=== PATIENT | female | born 1955 | race Asian ===

== ENCOUNTER 2017-12-19 16:48 | Emergency (ER) | payer MEDICAID ==
[~2017-12-19] VITALS: Ht 160 cm; Wt 71.8 kg
[2017-12-19 16:55] VITALS: BP 137/73
== END 2017-12-19 19:00 | disposition home or self-care (01) ==
LOC: EMS 16:51
DX: J40 Bronchitis, not specified as acute or chronic (principal)
CPT/HCPCS: 71046; 99284

== ENCOUNTER 2018-01-07 13:44 | Emergency (ER) | payer MEDICAID ==
[~2018-01-07] VITALS: Ht 167.6 cm; Wt 65.9 kg
[2018-01-07 14:16] VITALS: BP 164/82
== END 2018-01-07 15:19 | disposition home or self-care (01) ==
LOC: EMS 13:45
DX: I10 Essential (primary) hypertension (principal); E11.9 Type 2 diabetes mellitus without complications
CPT/HCPCS: 82948; 99283

== ENCOUNTER 2024-05-04 12:41 | Emergency (ER) | payer MEDICAID, MEDICARE ==
[~2024-05-04] VITALS: Ht 160 cm; Wt 67.0 kg
[2024-05-04 12:50] VITALS: TEMP 98.3
[2024-05-04 13:46] LABS: GLUCOMETER DEV NAME(LOC) ERT.6; GLUCOSE,POINT OF CARE 181 MG/DL (70-110)
[2024-05-04 13:51] LABS: BASOPHILS % (AUTO) 0.4 % (0.0-2.0); EOSINOPHILS % (AUTO) 2.1 % (1.0-6.0); HEMATOCRIT 41.5 % (36-46); HEMOGLOBIN 13.9 g/dL (12.0-16.0); LYMPHOCYTES # (AUTO) 1.9 K/uL (1.0-4.8); LYMPHOCYTES % (AUTO) 24.7 % (22.0-44.0); MEAN CORPUSCULAR HEMOGLOBIN 28.6 pg (26.0-34.0); MEAN CORPUSCULAR HGB CONC 33.4 G/dL (31.0-37.0); MEAN CORPUSCULAR VOLUME 86 fL (80-100); MONOCYTES # (AUTO) 0.5 K/uL (0.1-1.0); MONOCYTES % (AUTO) 6.3 % (2.0-9.0); NEUTROPHILS # (AUTO) 5.1 K/uL (1.8-7.7); NEUTROPHILS % (AUTO) 66.5 % (40.0-70.0); PLATELET COUNT (AUTO) 221 K/uL (150-450); RED BLOOD CELL COUNT(AUTO) 4.85 MIL/uL (4.00-5.20); RED CELL DISTRIBUTION WIDTH 13.3 % (11.5-14.5); WHITE BLOOD COUNT (AUTO) 7.7 K/uL (4.5-11.0)
[2024-05-04] MEDS: AmLODIPine BESYLATE 5 MG TABLET PO ONE (13:54)
[2024-05-04 14:00] LABS: ANION GAP 13 mmol/L (8-16); CALCIUM, TOTAL 8.6 mg/dL (8.8-10.5); CARBON DIOXIDE 24 mmol/L (22-29); CHLORIDE 100 mmol/L (98-107); CREATININE 0.63 mg/dL (0.60-1.30); GLOMERULAR FILTR. RATE CALC > 60 mL/min (>60); GLUCOSE,RANDOM 160 mg/dL (70-110); POTASSIUM 3.6 mmol/L (3.5-5.1); SODIUM SERUM 136 mmol/L (136-145); UREA NITROGEN, BLOOD 14 mg/dL (7-18)
[2024-05-04] MEDS ORDERED: AMLO2.5T96 PO (14:05)
[2024-05-04 14:19] LABS: TROPONIN I-HIGH SENSITIVITY 12 ng/L (<51)
[2024-05-04 14:34] VITALS: BP 141/72; PULSE 64; RESP 17; O2SAT 95
== END 2024-05-04 14:39 | disposition home or self-care (01) ==
LOC: EMS 12:44
DX: I10 Essential (primary) hypertension (principal); R73.9 Hyperglycemia, unspecified; G89.29 Other chronic pain; M25.531 Pain in right wrist; Z98.890 Other specified postprocedural states
CPT/HCPCS: 80048; 82962; 84484; 85025; 93005; 99284

== ENCOUNTER 2025-07-29 20:11 | Emergency (ER) | payer MEDICARE ==
[~2025-07-29] VITALS: Ht 160 cm; Wt 68.2 kg
[~2025-07-29 20:11] MED LIST: AMLO2.5T96 PO
[2025-07-29 20:24] VITALS: BP 159/64; PULSE 75; RESP 16; TEMP 97.9; O2SAT 96
== END 2025-07-29 21:04 | disposition home or self-care (01) ==
LOC: EMS 20:11
DX: T15.91XA Foreign body on external eye, part unspecified, right eye, initial encounter (principal); T15.92XA Foreign body on external eye, part unspecified, left eye, initial encounter; Z79.899 Other long term (current) drug therapy; W44.9XXA Unspecified foreign body entering into or through a natural orifice, initial encounter
CPT/HCPCS: 99282; 99284; Z7502